=== PATIENT | male | born 1995 | race Caucasian/White ===

== ENCOUNTER 2024-08-09 09:15 | Outpatient (OUT) | payer MEDICAID, SELFPAY | END 2024-08-09 09:16 | disposition home or self-care (01) | LOC: PST 09:15 | PROVIDERS: Visit Provider Urology | DX: Z01.818 Encounter for other preprocedural examination (principal); N31.8 Other neuromuscular dysfunction of bladder ==

== ENCOUNTER 2024-08-15 13:01 | Day surgery (SDC) | payer MEDICAID, SELFPAY ==
--- OUTSIDE RECORDS SUMMARY | 2016-02-13 05:45 | XMS_ITS | Continuity of Care Document ---
Author Organization [facility] Address [address] [place] [address] Phone Care Team Providers Care Staff Educator Name Role Phone Armando Polo Unavailable Unavailable Procedures Procedure Date IMMUNIZATION ADMIN Meningococcal Conjugate Vaccine 016 OFFICE/OUTPATIENT VISIT, EST Meningococcal Conjugate Vaccine 016 OFFICE/OUTPATIENT VISIT, EST OFFICE/OUTPATIENT VISIT, EST MMR VACCINE, SC POLIOVIRUS, IPV, SC/IM CHICKEN POX VACCINE, SC TDAP VACCINE >7 IM Advance Directives Directive Yes / No Effective Date File Name No Information Encounters Encounter Description Practice Location Reason(s) For Visit Diagnoses Date Provider Providers Copied on Encounter OFFICE/OUTPATI ENT VISIT, [facility], [address] [place] [address], [id number], [place] tel:[phone] [facility] No Information Brittani Marx. [address], [place], [id number], [place]. tel:[phone] OFFICE/OUTPATI ENT VISIT, [facility], [address], [place], [id number], [place] tel:[phone] [facility] Influenza Vaccine Brittani Marx. [address], [place], [id number], [place]. tel:[phone] OFFICE/OUTPATI ENT VISIT, [facility], [address], [place], [id number], [place] tel:[phone] [facility] No Information Visci DO Armando. [address], [place], [id number], [place]. tel:[phone] Family History Family Member Type Diagnosis Age At Onset No Information Immunizations Vaccine Date Status Comments meningococcal MCV4P administered Source: New Immunization Record Flu (split) (3 yrs or older) administered Note: Flu vis given. ; Source: New Immunization Record Tdap administered Source: New Imm unization Record Varicella administered Source: New Imm unization Record MMR administered Source: New Imm unization Record polio, inactive administered Source: New Immunization Record Payers Payer name Insurance type Covered libertarian ID Authoriza tion(s) Medicaid Primary - [facility] [place] [id number] Medicaid Primary - [facility] [place] [id number] Social History Type Description Quantity Date Captured Comments Sex Male Smoking Status No Information Chief Complaint And Reason For Visit No Information Reason For Referral Reason For Referral No Information Plan Of Treatment Date Type Action Status Goal Tdap due Goal HPV (1st). Due on 6 due Goal Depression screening. Due on due Goal TD Vaccine. Due on 10 due History Of Present Illness Encounter Date Complaint History Of Prese nt Illness No Information Functional Status Date Functional Assessmen t No Information Instructions Date Instruction Additional Infor mation No Information Assessments Type Assessment Date No Information Patient Care Teams Name Effective Dates (start - stop) Status Members No Information
--- OUTSIDE RECORDS SUMMARY | 2024-08-15 13:05 | XMS_ITS | Encounter Summary ---
Author Organization [facility] Address [address] [place] [address] Phone Care Team Providers Care Geothermal Hvac Technician Name Role Phone Laurie Diaz BINDERY PRODUCTION MANAGER-HARBOR PILOT Primary Care Prov ider Zainab Jones BINDERY PRODUCTION MANAGER-HARBOR PILOT Unavailable Encounter Details Date Type Department Care Team (Late st Contact Info) Description 02/29/2024 Patient Risk Score ACO Care Management [address] [place] [address] Social History Tobacco Use Types Packs/Day Years Used Date Smoking Tobacco: Never Smokeless Tobacco: Never Alcohol Use Standard Drinks/Week Comments Never 0 (1 standard drink = 0.6 oz pur e alcohol) Sex and Gender Information Value Date Recorded Sex Assigned at Not on file Legal Sex Male 12:02 AM EST Gender Identity Not on file Sexual Orientation Not on file documented as of this encounter Plan of Treatment Upcoming Encounters Date Type Department Care Team (Late st Contact Info) Description 09/27/2024 3:30 PM EDT Telemedicine [facility] [address] [place] [address] [place] [address] Department of Medicine-Endocrinol [place], [place] [phone] documented as of this encounter Visit Diagnoses Not on filedocumented in this encounter Care Teams Geothermal Hvac Technician Relationship Specialty Start Date End Date Laurie Diaz SUNNI-HARBOR PILOT [address] [facility] [place] [address] PCP - General 09/26/15 Zainab Jones APRN-HARBOR PILOT [address] [facility] [address] [place] [address] PCP - SENIOR CONSTRUCTION PROJECT MANAGER Medicaid PCP 12/27/23 documented as of this encounter
--- OUTSIDE RECORDS SUMMARY | 2024-08-15 13:05 | XMS_ITS | Encounter Summary ---
Author Organization [facility] Address [address] [place] [address] Care Team Providers Care Silk Snapper Name Role Phone Leonid Escalante MD Primary Care Provider Reason for Visit * Reason Comments Medication Refill Encounter Details Date Type Department Care Team (Late st Contact Info) Description 04/25/2011 Refill Division of Pediatric Endocrinology [address] [place] [phone] Carlos Wheeler MD [facility] [place] [address] Medication Refill Social History Tobacco Use Types Packs/Day Years Used Date Smoking Tobacco: Never Assessed Sex and Gender Information Value Date Recorded Sex Assigned at Not on file Legal Sex Male 7:11 PM EST Gender Identity Not on file Sexual Orientation Not on file documented as of this encounter Plan of Treatment Not on file documented as of this encounter Visit Diagnoses Diagnosis Type 1 diabetes mellitus (HCC) Type I (juvenile type) diabetes mellitus without mention of complication, not stated as uncontrolled documented in this encounter Care Teams Silk Snapper Relationship Specialty Start Date End Date Leonid Escalante MD PCP - General 03/31/11 documented as of this encounter
--- OUTSIDE RECORDS SUMMARY | 2024-08-15 13:05 | XMS_ITS | Encounter Summary ---
Author Organization [facility] Address [address] [place] [address] Care Team Providers Care Press And Blow Machine Tender Name Role Phone Leonid Escalante MD Primary Care Provider [phone] Reason for Visit * Reason Comments Other Encounter Details Date Type Department Care Team (Late st Contact Info) Description 07/03/2012 Refill Division of Pediatric Endocrinology [address] [facility] [address] [place] [address] Christianne Breen, SUPERVISOR [facility] [address] [facility] [address] [place] [address] Other Social History Tobacco Use Types Packs/Day Years Used Date Smoking Tobacco: Never Smokeless Tobacco: Never Alcohol Use Standard Drinks/Week Comments No 0 (1 standard drink = 0.6 oz pur e alcohol) Sex and Gender Information Value Date Recorded Sex Assigned at Not on file Legal Sex Male 7:11 PM EST Gender Identity Not on file Sexual Orientation Not on file documented as of this encounter Plan of Treatment Not on file documented as of this encounter Visit Diagnoses Diagnosis Type I (juvenile type) diabetes mellitus without mention of complication, not stated as uncontrolled- Primary documented in this encounter Care Teams Press And Blow Machine Tender Relationship Specialty Start Date End Date Loenid Escalante MD PCP - General 03/31/11 documented as of this encounter
--- OUTSIDE RECORDS SUMMARY | 2024-08-15 13:05 | XMS_ITS | Encounter Summary ---
Author Organization [facility] Address [address] [place] [address] Phone Care Team Providers Care Brick Kiln Worker Name Role Phone Laurie Diaz FILL TECHNICIAN-AIR TRAFFIC CONTROL SPECIALIST CENTER Primary Care Prov ider Zainab Jones FILL TECHNICIAN-AIR TRAFFIC CONTROL SPECIALIST CENTER Unavailable Encounter Details Date Type Department Care Team (Late st Contact Info) Description 05/01/2024 Patient Risk Score ACO Care Management [address] [place] [address] Social History Tobacco Use Types [...] Info) Description 09/27/2024 3:30 PM EDT Telemedicine [facility] [address] [place] [address] [place] [address] Department of Medicine-Endocrinol [place], [place] [phone] documented as of this encounter Visit Diagnoses Not on filedocumented in this encounter Care Teams Brick Kiln Worker Relationship Specialty Start Date End Date Laurie Diaz SUNNI-[facility] TRAFFIC CONTROL [facility]IST [facility] [address] [facility] [place] [address] PCP - General 09/26/15 Zainab Jones APRN-AIR TRAFFIC CONTROL SPECIALIST CENTER [address] [facility] [address] [place] [address] PCP - REFINERY OPERATOR VAPOR RECOVERY UNIT Medicaid PCP 12/27/23 documented as of this encounter
--- OUTSIDE RECORDS SUMMARY | 2024-08-15 13:05 | XMS_ITS | Encounter Summary ---
Author Organization [facility] Address [address] [place] [address] Phone Care Team Providers Care Cylinder Inspector And Tester Name Role Phone Laurie Diaz Primary Care Prov ider Zainab Jones Unavailable Encounter Details Date Type Department Care Team (Late st Contact Info) Description 08/18/2018 Orders Only [facility] [address] [place] [address] Conversion, Onbase Social History Tobacco Use Types Packs/Day Years [...] Info) Description 09/27/2024 3:30 PM EDT Telemedicine [facility] [address] [place] [address] [place] [address] Department of [place] [address] Scheduled Orders Name Type Priority Associated Diagnoses Orde r Schedule OUTSIDE LAB SCAN Lab Ordered: 08/18/2018 documented as of this encounter Visit Diagnoses Not on filedocumented in this encounter Care Teams Cylinder Inspector And Tester Relationship Specialty Start Date End Date Laurie Diaz APRN-CNP [address] [facility] [place] [address] PCP - General 09/26/15 Zainab Jones, HASH SLINGER-MAT MACHINE TENDER [address] [facility] [address] [place] [address] PCP - EATING DISORDER SPECIALIST Medicaid PCP 12/27/23 documented as of this encounter
--- OUTSIDE RECORDS SUMMARY | 2024-08-15 13:05 | XMS_ITS | Encounter Summary ---
Author Organization [facility] Address [address] [place] [address] Phone Care Team Providers Care Building Construction Supervisor Name Role Phone Laurie Diaz TENANT COORDINATOR-BOX PERSON Primary Care Prov ider Zainab Jones TENANT COORDINATOR-BOX PERSON Unavailable Encounter Details Date Type Department Care Team (Late st Contact Info) Description 03/31/2024 Patient Risk Score ACO Care Management [address] [place] [address] Social History Tobacco Use Types [...] Info) Description 09/27/2024 3:30 PM EDT Telemedicine [facility] [address] [place] [address] [place] [address] Department of Medicine-Endocrinol [place], [place] [phone] documented as of this encounter Visit Diagnoses Not on filedocumented in this encounter Care Teams Building Construction Supervisor Relationship Specialty Start Date End Date Laurie Diaz SUNNI-BOX PERSON [address] [facility] [place] [address] PCP - General 09/26/15 Zainab Jones APRN-BOX PERSON [address] [facility] 100 [place] [address] PCP - NUCLEAR POWERPLANT MECHANIC Medicaid PCP 12/27/23 documented as of this encounter
--- OUTSIDE RECORDS SUMMARY | 2024-08-15 13:05 | XMS_ITS | Encounter Summary ---
Author Organization [facility] Address [address] [facility] [address] Phone Care Team Providers Care Occupational Analyst Name Role Phone Laurie Diaz ROBOTIC WELDING OPERATOR-SEAMLESS TUBE MILL OPERATOR Primary Care Prov ider Zainab Jones ROBOTIC WELDING OPERATOR-SEAMLESS TUBE MILL OPERATOR Unavailable [phone] Encounter Details Date Type Department Care Team (Late st Contact Info) Description 05/29/2024 Patient Risk Score ACO Care Management [address] [place] [address] Social History Tobacco Use Types Packs/Day Years Used Date Smoking Tobacco: Never Smokeless Tobacco: Never Alcohol Use Standard Drinks/Week Comments Never 0 (1 standard drink = 0.6 oz pur e alcohol) PHQ-2 Answer Date Recorded Patient Health Questionnaire-2 Score 0 05/18/2024 Sex and Gender Information Value Date Recorded Sex Assigned at Not on file Legal Sex Male 12:02 AM EST Gender Identity Not on file Sexual Orientation Not on file COVID-19 Exposure Response Date Recorded In the last 10 days, have yo u been in contact with someone who was confirmed or suspected to have Coronavirus/COVID-19? No / Unsure 05/18/2024 11:08 AM EST documented as of this encounter Plan of Treatment Upcoming Encounters Date Type Department Care Team (Late Contact Info) Description 09/27/2024 3:30 PM EDT Telemedicine [facility] [address] [place] [phone] [place] [address] Department of Medicine-[place] [address] documented as of this encounter Visit Diagnoses Not on filedocumented in this encounter Additional Health Concerns Assessment Noted Time A fall risk assessment has been complete d for the patient 05/18/2024 11:32 AM EST documented as of this encounter Care Teams Occupational Analyst Relationship Specialty Start Date End Date Laurie Diaz APRN-CNP [address] [facility] [place] [address] PCP - General 09/26/15 Zainab Jones APRN-CNP [address] [facility] 100 [place] [address] PCP - [facility] Medicaid PCP 12/27/23 documented as of this encounter
--- OUTSIDE RECORDS SUMMARY | 2024-08-15 13:05 | XMS_ITS | Encounter Summary ---
Author Organization [facility] Address [address] [place] [address] Care Team Providers Care Tamale Machine Feeder Name Role Phone Leonid Escalante MD Primary Care Provider [phone] Reason for Visit * Reason Comments Medication Refill Encounter Details Date Type Department Care Team (Late st Contact Info) Description 05/30/2011 Refill Division of Pediatric Endocrinology [address] [place] [phone] Carlos Wheeler MD [facility]9 [place] [address] Medication Refill Social History Tobacco Use Types [...] on filedocumented in this encounter Care Teams Tamale Machine Feeder Relationship Specialty Start Date End Date Leonid Escalante MD PCP - General 03/31/11 documented as of this encounter
--- OUTSIDE RECORDS SUMMARY | 2024-08-15 13:05 | XMS_ITS | Encounter Summary ---
Author Organization [facility] Address [address] [place] [address] Care Team Providers Care Agent Spa Desk Name Role Phone Leonid Escalante MD Primary Care Provider [phone] Reason for Visit * Reason Comments Other Encounter Details Date Type Department Care Team (Late st Contact Info) Description 06/25/2012 Refill Division of Pediatric Endocrinology [address] [facility] [address] [place] [address] Christianne Breen, VIBRATOR OPERATOR - [facility] [address] [facility] [address] [place] [address] Other Social History Tobacco Use Types Packs/Day [...] Primary documented in this encounter Care Teams Agent Spa Desk Relationship Specialty Start Date End Date Leonid Escalante MD PCP - General 03/31/11 documented as of this encounter
--- NOTE | 2024-08-15 13:06 | ECG_ITS ---
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 Measurements Intervals [place] Rate: 90 P: 70 [place]: 113 QRS: 95 QRSD: 97 T: 71 QT: 354 QTc: 435 Interpretive Statements SINUS RHYTHM WITH SHORT [place] INTERVAL BORDERLINE RIGHT AXIS DEVIATION [QRS AXIS > 90] INCOMPLETE RIGHT BUNDLE BRANCH BLOCK [90+ ms QRS DURATION, TERMINAL R IN V1/V2, 40+ ms S IN I/aVL/V4/V5/V6] ST ELEVATION, PROBABLY EARLY REPOLARIZATION [ST ELEVATION WITH NORMALLY INFLECTED T WAVE] Borderline ECG No previous ECG available for comparison Electronically Signed On 08-15-2024 21:45:54 EDT by KAMAR COFFEY M.D.
--- OUTSIDE RECORDS SUMMARY | 2024-08-15 13:06 | XMS_ITS | Encounter Summary ---
Author Organization [facility] Address [address] [facility] [place] [address] Care Team Providers Care Extrusion Line Operator Name Role Phone Unallocated, Noms Provider Primary Care Provi marion Encounter Details Date Type Department Care Team (Late st Contact Info) Description 08/08/2024 Abstract [facility] [place] [id number] [place] [phone] Fortino Hess DO [address] [facility] [address] [place] [address] Social History Tobacco Use Types Packs/Day Years Used Date Smoking Tobacco: Never Assessed Sex and Gender Information Value Date Recorded Sex Assigned at Not on file Legal Sex Male 7:21 PM EDT Gender Identity Not on file Sexual Orientation Not on file documented as of this encounter Plan of Treatment Upcoming Encounters Date Type Department Care Team (Late st Contact Info) Description 08/16/2024 3:20 PM EDT Office Visit [facility] [address] [place] [address] Fortino Hess DO [address] [place] [address] documented as of this encounter Visit Diagnoses Not on filedocumented in this encounter Care Teams Extrusion Line Operator Relationship Specialty Start Date End Date Unallocated, Noms Provider, [address] [place] [address] PCP - General Family Medicine 05/08/23 documented as of this encounter
--- OUTSIDE RECORDS SUMMARY | 2024-08-15 13:06 | XMS_ITS | Encounter Summary ---
Author Organization [facility] Address [address] [facility] [place] [address] Phone Care Team Providers Care Group Leader Name Role Phone Laurie Diaze BARREL REAMER-VP MARKETING Primary Care Prov ider Zainab Jones BARREL REAMER-VP MARKETING Unavailable Encounter Details Date Type Department Care Team (Late st Contact Info) Description 08/03/2024 Telephone [facility] [address] [place] [phone] Dana Griffiths RD, LD Social History Tobacco Use Types Packs/Day Years [...] on file documented as of this encounter Miscellaneous Notes * Telephone Encounter - Dana Griffiths RD, LD - 08/03/2024 1:33 PM EDT [facility] pre-surgical testing department is requesting endocrinology notes and recent labsin advance of Mr. Dior's cystoscopy with possible urethral dilation. FAX: [phone] ATTN to Salena documented in this encounter Plan of Treatment Upcoming Encounters Date Type Department Care Team (Late st Contact Info) Description 09/27/2024 3:30 PM EDT Telemedicine [facility] [address] [place] [address] [place] [address] [facility] Department [place] [address] documented as of this encounter Visit Diagnoses Not on filedocumented in this encounter Additional Health Concerns Assessment Noted Time A fall risk assessment has been complete d for the patient 05/18/2024 11:32 AM EST documented as of this encounter Care Teams Group Leader Relationship Specialty Start Date End Date Laurie Diaz APRN-LILY [address] [facility] [place] [address] PCP - General 09/26/15 Zainab Jones, BARREL REAMER-VP MARKETING [address] [facility] [address] [place] [address] PCP - [facility] Medicaid PCP 12/27/23 documented as of this encounter
--- OUTSIDE RECORDS SUMMARY | 2024-08-15 13:06 | XMS_ITS | Encounter Summary ---
Author Organization [facility] Address [address] [place] [address] Phone Care Team Providers Care Hospitality Job Titles Name Role Phone Laurie Diaz Primary Care Prov ider Zainab Jones Unavailable [phone] Encounter Details Date Type Department Care Team (Late st Contact Info) Description 10/13/2020 Orders Only [facility] [address] [place] [address] Conversion, Onbase Social History Tobacco Use Types [...] Info) Description 09/27/2024 3:30 PM EDT Telemedicine [facility] [address] [place] [address] [place] [address] Department of Medicine-Endocrinol [place], [place] [phone] Scheduled Orders Name Type Priority Associated Diagnoses Orde r Schedule OUTSIDE LAB SCAN Lab Ordered: 10/13/2020 documented as of this encounter Visit Diagnoses Not on filedocumented in this encounter Care Teams Hospitality Job Titles Relationship Specialty Start Date End Date Laurie Diaz APRN-CNP [address] [facility] [place] [address] PCP - General 09/26/15 Zainab Jones, SUNNI-GRAPHIC DESIGNER [address] [facility] [address] [place] [address] PCP - COBOL ENGINEER Medicaid PCP 12/27/23 documented as of this encounter
--- OUTSIDE RECORDS SUMMARY | 2024-08-15 13:06 | XMS_ITS | Encounter Summary ---
Author Organization [facility] Address [address] [place] [address] Phone Care Team Providers Care Thoracic Surgeon Name Role Phone Laurie Diaz Primary Care Prov ider Zainab Jones Unavailable [phone] Encounter Details Date Type Department Care Team (Late st Contact Info) Description 05/25/2017 Orders Only [facility] [address] [place] [address] Conversion, Onbase Social History Tobacco Use Types [...] Info) Description 09/27/2024 3:30 PM EDT Telemedicine [facility] [address] [place] [address] [place] [address] Department [place] [address] Scheduled Orders Name Type Priority Associated Diagnoses Orde r Schedule OUTSIDE LAB SCAN Lab Ordered: 05/25/2017 documented as of this encounter Visit Diagnoses Not on filedocumented in this encounter Care Teams Thoracic Surgeon Relationship Specialty Start Date End Date Laurie Diaz APRN-CNP [address] [facility] [place] [address] PCP - General 09/26/15 Zainab Jones, COAT FELLER-CREAM SEPARATOR OPERATOR [address] [facility] 100 [place] [address] PCP - BAR ATTENDANT Medicaid PCP 12/27/23 documented as of this encounter
--- OUTSIDE RECORDS SUMMARY | 2024-08-15 13:06 | XMS_ITS | Encounter Summary ---
Author Organization [facility] Address [address] [place] [address] Phone Care Team Providers Care Low Voltage Electrician Name Role Phone Laurie Diaz BUNK HOUSE WORKER-TITLE ATTORNEY Primary Care Prov ider Zainab Jones BUNK HOUSE WORKER-TITLE ATTORNEY Unavailable Encounter Details Date Type Department Care Team (Late st Contact Info) Description 07/29/2024 Patient Risk Score [facility] Care Management [address] [place] [address] Social History Tobacco Use Types [...] Info) Description 09/27/2024 3:30 PM EDT Telemedicine [facility] [address] [place] [address] [place] [address] Department [place] [address] documented as of this encounter Visit Diagnoses Not on filedocumented in this encounter Additional Health Concerns Assessment Noted Time A fall risk assessment has been complete d for the patient 05/18/2024 11:32 AM EST documented as of this encounter Care Teams Low Voltage Electrician Relationship Specialty Start Date End Date Laurie Diaz APRN-CNP [address] [facility] [place] [address] PCP - General 09/26/15 Zainab Jones, SUNNI-LILY [address] [facility] [address] [place] [address] PCP - [facility] Medicaid PCP 12/27/23 documented as of this encounter
--- OUTSIDE RECORDS SUMMARY | 2024-08-15 13:06 | XMS_ITS | Encounter Summary ---
Author Organization Vaughn Ricardo Mayer [facility] Address [address] [place] [address] Care Team Providers Care Web Marketing Manager Name Role Phone Leonid Escalante MD Primary Care Provider [phone] Reason for Visit * Reason Comments Other Encounter Details Date Type Department Care Team (Late Contact Info) Description 12/24/2013 Refill Division of Pediatric Endocrinology [address] [place] [phone] Carlos Wheeler MD [address] [place] [address] Other Social History Tobacco Use Types Packs/Day [...] on filedocumented in this encounter Care Teams Web Marketing Manager Relationship Specialty Start Date End Date Leonid Escalante MD PCP - General 03/31/11 documented as of this encounter
--- OUTSIDE RECORDS SUMMARY | 2024-08-15 13:06 | XMS_ITS | Encounter Summary ---
Author Organization [facility]n [facility] Address [address] [place] [address] Care Team Providers Care Reclaimer Name Role Phone Leonid Escalante MD Primary Care Provider [phone] Reason for Visit * Reason Comments Other Encounter Details Date Type Department Care Team (Late st Contact Info) Description 12/10/2012 Refill Division of Pediatric Endocrinology [address] [facility] [address] [place] [phone] Christianne Breen, LOGISTICS COORDINATOR - SOLUTION ARCHITECT [address] [facility] [address] [place] [address] Other Social History Tobacco Use Types Packs/Day [...] Primary documented in this encounter Care Teams Reclaimer Relationship Specialty Start Date End Date Leonid Escalante MD PCP - General 03/31/11 documented as of this encounter
--- OUTSIDE RECORDS SUMMARY | 2024-08-15 13:06 | XMS_ITS | Encounter Summary ---
Author Organization Vaughn Ricardo Mayer [facility] Address [address] [place] [address] Care Team Providers Care Chief I Dispatcher Name Role Phone Leonid Escalante MD Primary Care Provider [phone] Reason for Visit * Reason Comments Other Encounter Details Date Type Department Care Team (Late st Contact Info) Description 08/02/2013 Refill Division of Pediatric Endocrinology [address] [facility] [address] [place] [address] Christianne Breen, DIGITAL FORENSIC ANALYST - RABBIT BREEDER [address] [facility] [address] [place] [address] Other Social History Tobacco Use Types Packs/Day [...] on filedocumented in this encounter Care Teams Chief I Dispatcher Relationship Specialty Start Date End Date Leonid Escalante MD PCP - General 03/31/11 documented as of this encounter
--- OUTSIDE RECORDS SUMMARY | 2024-08-15 13:06 | XMS_ITS | Encounter Summary ---
Author Organization Vaughn Ricardo Mayer [facility] Address [address] [place] [address] Care Team Providers Care Curing Oven Tender Name Role Phone Leonid Escalante MD Primary Care Provider [phone] Reason for Visit * Reason Comments Other Encounter Details Date Type Department Care Team (Late Contact Info) Description 07/25/2013 Refill Division of Pediatric Endocrinology [address] [place] [phone] Carlos Wheeler MD [address] [place] [address] Other Social History Tobacco Use Types Packs/Day [...] on filedocumented in this encounter Care Teams Curing Oven Tender Relationship Specialty Start Date End Date Leonid Escalante MD PCP - General 03/31/11 documented as of this encounter
--- OUTSIDE RECORDS SUMMARY | 2024-08-15 13:06 | XMS_ITS | Encounter Summary ---
Author Organization [facility] Address [address] [place] [address] Phone Care Team Providers Care Toll Collector Supervisor Name Role Phone Laurie Diaz SENIOR MEDIA PLANNER-MALE INFERTILITY SPECIALIST Primary Care Prov ider Zainab Jones SENIOR MEDIA PLANNER-MALE INFERTILITY SPECIALIST Unavailable [phone] Encounter Details Date Type Department Care Team (Late Contact Info) Description 05/21/2024 Community Care Management [employer] [address] [place] [address] [facility] Tai PhysicianMD [address] [place] [address] Social History Tobacco Use Types Packs/Day Years [...] Telemedicine [facility] [address] [place] [address] [place] [address] [address] Department [place] [address] documented as of this encounter Visit Diagnoses Not on filedocumented in this encounter Additional Health Concerns Assessment Noted Time A fall risk assessment has been complete d for the patient 05/18/2024 11:32 AM EST documented as of this encounter Care Teams Toll Collector Supervisor Relationship Specialty Start Date End Date Laurie Diaz APRN-MALE INFERTILITY SPECIALIST [address] [facility] [place] [address] PCP - General 09/26/15 Zainab Jones, SUNNI-MALE INFERTILITY SPECIALIST [address] [place] [address] PCP - [facility] Medicaid PCP 12/27/23 documented as of this encounter
--- OUTSIDE RECORDS SUMMARY | 2024-08-15 13:06 | XMS_ITS | Encounter Summary ---
Author Organization Vaguhn Mayer [facility] Address [address] [place] [address] Care Team Providers Care Drug Counselor Name Role Phone Leonid Escalante MD Primary Care Provider [phone] Reason for Visit * Reason Comments Other Encounter Details Date Type Department Care Team (Late Contact Info) Description 05/02/2013 Refill Division of Pediatric Endocrinology [address] [place] [phone] Carlos Wheeler MD [address] [place] [address] Other Social History Tobacco Use Types Packs/Day [...] Primary documented in this encounter Care Teams Drug Counselor Relationship Specialty Start Date End Date Leonid Escalante MD PCP - General 03/31/11 documented as of this encounter
--- OUTSIDE RECORDS SUMMARY | 2024-08-15 13:06 | XMS_ITS | Encounter Summary ---
Author Organization [facility] Address [address] [place] [address] Phone Care Team Providers Care Sweet Goods Machine Operator Name Role Phone Laurie Diaz Primary Care Prov ider Zainab Jones Unavailable Encounter Details Date Type Department Care Team (Late st Contact Info) Description 09/06/2022 Orders Only [facility] [address] [place] [address] Conversion, Onbase Social History Tobacco Use Types [...] Info) Description 09/27/2024 3:30 PM EDT Telemedicine [facility] [address] [place] [address] [place] [address] Department of Medicine-Endocrinol [place], [place] [phone] Scheduled Orders Name Type Priority Associated Diagnoses Orde r Schedule OUTSIDE LAB SCAN Lab Ordered: 09/06/2022 documented as of this encounter Visit Diagnoses Not on filedocumented in this encounter Care Teams Sweet Goods Machine Operator Relationship Specialty Start Date End Date Laurie Diaz APRN-CNP [address] [facility] [place] [address] PCP - General 09/26/15 Zainab Jones, SUNNI-FOREIGN LANGUAGES PROFESSOR [address] [facility] [address] [place] [address] PCP - COMPOSITION BOARD PRESS OPERATOR Medicaid PCP 12/27/23 documented as of this encounter
--- OUTSIDE RECORDS SUMMARY | 2024-08-15 13:06 | XMS_ITS | Encounter Summary ---
Author Organization Vaughn Ricardo Mayer [facility] Address [address] [place] [address] Care Team Providers Care Nut Sheller Name Role Phone Leonid Escalante MD Primary Care Provider [phone] Reason for Visit * Reason Comments Other Encounter Details Date Type Department Care Team (Late Contact Info) Description 09/29/2013 Refill Division of Pediatric Endocrinology [address] [place] [phone] Carlos Wheeler MD [address] [place] [address] Other Social History Tobacco Use Types Packs/Day [...] on filedocumented in this encounter Care Teams Nut Sheller Relationship Specialty Start Date End Date Leonid Escalante MD PCP - General 03/31/11 documented as of this encounter
--- OUTSIDE RECORDS SUMMARY | 2024-08-15 13:06 | XMS_ITS | Encounter Summary ---
Author Organization Vaughn Ricardo Mayer [facility] Address [address] [place] [address] Care Team Providers Care Regulatory Attorney Name Role Phone Leonid Escalante MD Primary Care Provider [phone] Reason for Visit * Reason Comments Other Encounter Details Date Type Department Care Team (Late st Contact Info) Description 06/13/2013 Refill Division of Pediatric Endocrinology [address] [facility] [address] [place] [address] Christianne Breen, BUSINESS OFFICE TECHNICIAN - DIETARY DIRECTOR [address] [facility] [address] [place] [address] Other Social History Tobacco Use Types Packs/Day [...] on filedocumented in this encounter Care Teams Regulatory Attorney Relationship Specialty Start Date End Date Leonid Escalante MD PCP - General 03/31/11 documented as of this encounter
--- OUTSIDE RECORDS SUMMARY | 2024-08-15 13:06 | XMS_ITS | Encounter Summary ---
Author Organization [facility] Address [address] [facility] [place] [address] Phone Care Team Providers Care Senior Cisco Network Engineer Name Role Phone Laurie Diaz UNDERWRITER-PROPULSION ENGINEER Primary Care Prov ider Hailey Jonesian Paul UNDERWRITER-PROPULSION ENGINEER Unavailable Reason for Visit * Reason Onset Date Comments Pharmacy Clarification Of Prescription Encounter Details Date Type Department Care Team (Late st Contact Info) Description 08/02/2024 Telephone [facility] [address] [place] [address], [place] Pharmacy Clarification Of Prescription Social History Tobacco Use Types Packs/Day Years [...] Encounter - Dana Griffiths RD, LD - 08/02/2024 12:12 PM EDT Pharmacist from [place] called 08/02. Humalog is no longer on 's insurance formulary. The preferred product is insulin aspart (Novolog). documented in this encounter Plan of Treatment Upcoming Encounters Date Type Department Care Team (Late st Contact Info) Description 09/27/2024 3:30 PM EDT Telemedicine [facility] [address] [place] [address] [place] [address] [address] [facility] Department [place] [address] documented as of this encounter Visit Diagnoses Diagnosis Type 1 diabetes mellitus with hyperglycemia, with long-term current use of insulin- Primary documented in this encounter Additional Health Concerns Assessment Noted Time A fall risk assessment has been complete d for the patient 05/18/2024 11:32 AM EST documented as of this encounter Care Teams Senior Cisco Network Engineer Relationship Specialty Start Date End Date Laurie Diaz APRN-PROPULSION ENGINEER [address] [facility] [place] [address] PCP - General 09/26/15 Zainab Jones, SUNNI-PROPULSION ENGINEER [address] [address] PCP - [facility] Medicaid PCP 12/27/23 documented as of this encounter
--- OUTSIDE RECORDS SUMMARY | 2024-08-15 13:06 | XMS_ITS | Encounter Summary ---
Author Organization [facility] Address [address] [place] [address] Phone Care Team Providers Care Mixing Machine Tender Cork Rod Name Role Phone Laurie Diaz TELEPHONY ENGINEER-COMMUNICATIONS SPECIALIST Primary Care Prov ider Zainab Jones TELEPHONY ENGINEER-COMMUNICATIONS SPECIALIST Unavailable Encounter Details Date Type Department Care Team (Late st Contact Info) Description 06/29/2024 Patient Risk Score [facility] Care Management [address] [place] [address] Social History Tobacco Use Types [...] 09/27/2024 3:30 PM EDT Telemedicine [facility] [address] [place] [address] [place] [address] [address] Department [place] [address] documented as of this encounter Visit Diagnoses Not on filedocumented in this encounter Additional Health Concerns Assessment Noted Time A fall risk assessment has been complete d for the patient 05/18/2024 11:32 AM EST documented as of this encounter Care Teams Mixing Machine Tender Cork Rod Relationship Specialty Start Date End Date Laurie Diaz APRN-CNP [address] [facility] [place] [address] PCP - General 09/26/15 Zaniab Jones, SUNNI-LILY [address] [facility] [address] [place] [address] PCP - [facility] Medicaid PCP 12/27/23 documented as of this encounter
--- OUTSIDE RECORDS SUMMARY | 2024-08-15 13:06 | XMS_ITS | Clinical Summary ---
Author Organization [facility] Address [address] [place] [place] [address] Care Team Providers Care Quilt Maker Name Role Phone Unallocated, Noms Provider Primary Care Provi marion Allergies No known active allergies Medications Continuous Blood Gluc Sensor (Dexcom G7 Sensor) misc CHANGE EVERY 10 DAYS 04/13/19 24 Active dexmethylpheni date XR (Focalin XR) 40 MG 24 hr capsule Take 40 mg by mouth in the morning. Do not start before May 18, 2023. 05/18/19 24 Active sertraline (Zoloft) 100 MG tablet Take 150 mg by mouth in the morning. Active zolpidem (Ambien) 10 MG tablet Take 10 mg by mouth at bedtime 03/16/20 23 Active traZODone (Desyrel) 50 MG tablet Take 50 mg by mouth at bedtime 01/18/20 23 Active levothyroxine (Synthroid, Levoxyl) 175 MCG tablet 04/20/19 24 Active insulin lispro (HumaLOG) 100 UNIT/ML injection INJECT SUBCUTANEOUSLY UP TO 55 UNITS DAILY as directed Active famotidine (Pepcid) 40 MG tablet 01/27/20 23 Active Gvoke HypoPen 2-Pack 1 MG/0.2ML injection as directed by prescriber FOR SEVERE HYPOGLYCEMIA 08/12/19 23 Active phenazopyridin e (Pyridium) 100 MG tabletIndicati ons:Urinary urgency Take 1 tablet (100 mg) by mouth in the morning and 1 tablet (100 mg) at noon and 1 tablet (100 mg) in the evening. Take with meals. Do all this for 2 days. 6 tablet 07/26/19 25 025 cephalexin (Keflex) 500 MG capsuleIndicat ions:Urinary urgency Take 1 capsule (500 mg) by mouth in the morning and 1 capsule (500 mg) before bedtime. Do all this for 7 days. 14 capsule 07/26/19 25 025 Active Problems No known active problems Encounters Date Type Department Care Team Description 08/08/2024 Abstract [facility] [address] [place] [address] Fortino Hess, 08/06/2024 Abstract [facility] [address] [place] [phone] Unallocated, Autumn Barclay MD 07/27/2024 Telephone [facility] [address] [place] [phone] Gianna Hernandez MA 07/25/2024 6:25 PM EDT Office Visit [facility] [address] [place] [address] Belen Harden, REGIONAL BUSINESS MANAGER Urinary urgency; Bladder wall thickening 07/25/2024 Travel from Last 3 Months Social History Tobacco Use Types Packs/Day Years Used Date Smoking Tobacco: Never Assessed Sex and Gender Information Value Date Recorded Sex Assigned at Not on file Legal Sex Male 7:21 PM EDT Gender Identity Not on file Sexual Orientation Not on file Last Filed Vital Signs Vital Sign Reading Time Taken Comments Blood Pressure 122/82 07/25/2024 6:38 PM EDT Pulse 97 07/25/2024 6:38 PM EDT Temperature 36.5 C (97.7 F) 07/25/2024 6:38 PM EDT Respiratory Rate - - Oxygen Saturation 99% 07/25/2024 6:38 PM EDT Inhaled Oxygen Concentration - - Weight 54.9 kg (121 lb) 07/25/2024 6:38 PM EDT Height - - Body Mass Index - - Plan of Treatment Upcoming Encounters Date Type Department Care Team (Late st Contact Info) Description 08/16/2024 3:20 PM EDT Office Visit [facility] [address] [place] [phone] Fortino Hess, DO [address] [place] [address] Health Maintenance Due Date Last Done Comments Medicare Annual Wellness (AWV) 1995 Influenza Vaccine (Season Ended) 2024 12/25/2018, 12/02/2016, 01/06/2016, Additional history exists Procedures Procedure Name Priority Date/Time Associated Diagnosis Comments URINARY TRACT INFECTION (HTRX) Routine 07/26/2024 5:41 PM EDT Urinary urgency URINALYSIS ANALYZER TEST Routine 07/26/2024 4:04 PM EDT Urinary urgency from Last 3 Months Results * URINARY TRACT INFECTION (HTRX) (07/26/2024 5:41 PM EDT) ACINETOBACTER BAUMANII 0.000 19.961 - 24.689 ppm 07/27/2024 6:48 AM EDT [facility] ACINETOBACTER BAUMANII Not Detected 19.961 - 24.689 ppm 07/27/2024 6:48 AM EDT [facility] CITROBACTER FREUNDII 0.000 23.000 - 31.881 ppm 07/27/2024 6:48 AM EDT [facility] CITROBACTER FREUNDII Not Detected 23.000 - 31.881 ppm 07/27/2024 6:48 AM EDT [facility] ENTEROBACTER AEROGENES, CLOACAE 0.000 23.000 - 31.535 ppm 07/27/2024 6:48 AM EDT [facility] ENTEROBACTER AEROGENES, CLOACAE Not Detected 23.000 - 31.535 ppm 07/27/2024 6:48 AM EDT [facility] ENTEROCOCCUS FAECALIS, FAECIUM 0.000 26.000 - 31.575 ppm 07/27/2024 6:48 AM EDT [facility] ENTEROCOCCUS FAECALIS, FAECIUM Not Detected 26.000 - 31.575 ppm 07/27/2024 6:48 AM EDT [facility] ESCHERICHIA COLI 0.000 23.000 - 28.500 ppm 07/27/2024 6:48 AM EDT [facility] ESCHERICHIA COLI Not Detected 23.000 - 28.500 ppm 07/27/2024 6:48 AM EDT [facility] KLEBSIELLA PNEUMONIAE, OXYTOCA 0.000 23.000 - 30.500 ppm 07/27/2024 6:48 AM EDT [facility] KLEBSIELLA PNEUMONIAE, OXYTOCA Not Detected 23.000 - 30.500 ppm 07/27/2024 6:48 AM EDT [facility] MORGANELLA MORGANII 0.000 19.961 - 24.689 ppm 07/27/2024 6:48 AM EDT [facility] MORGANELLA MORGANII Not Detected 19.961 - 24.689 ppm 07/27/2024 6:48 AM EDT [facility] PROTEUS MIRABILIS, VULGARIS 0.000 23.000 - 28.500 ppm 07/27/2024 6:48 AM EDT [facility] PROTEUS MIRABILIS, VULGARIS Not Detected 23.000 - 28.500 ppm 07/27/2024 6:48 AM EDT [facility] PSEUDOMONAS AERUGINOSA 0.000 23.000 - 28.500 ppm 07/27/2024 6:48 AM EDT [facility] PSEUDOMONAS AERUGINOSA Not Detected 23.000 - 28.500 ppm 07/27/2024 6:48 AM EDT [facility] STAPHYLOCOCCUS AUREUS 0.000 26.000 - 30.902 ppm 07/27/2024 6:48 AM EDT [facility] STAPHYLOCOCCUS AUREUS Not Detected 26.000 - 30.902 ppm 07/27/2024 6:48 AM EDT [facility] STREPTOCOCCUS AGALACTIAE (GROUP B STREP) 0.000 26.000 - 32.222 ppm 07/27/2024 6:48 AM EDT [facility] STREPTOCOCCUS AGALACTIAE (GROUP B STREP) Not Detected 26.000 - 32.222 ppm 07/27/2024 6:48 AM EDT [facility] EMORY ALBICANS, PARAPSILOSIS, TROPICALIS 0.000 19.961 - 30.770 ppm 07/27/2024 6:48 AM EDT [facility] EMORY ALBICANS, PARAPSILOSIS, TROPICALIS Not Detected 19.961 - 30.770 ppm 07/27/2024 6:48 AM EDT [facility] EMORY GLABRATA 0.000 23.000 - 32.138 ppm 07/27/2024 6:48 AM EDT [facility] EMORY GLABRATA Not Detected 23.000 - 32.138 ppm 07/27/2024 6:48 AM EDT [facility] EMORY KRUSEI 0.000 23.000 - 32.271 ppm 07/27/2024 6:48 AM EDT [facility] EMORY KRUSEI Not Detected 23.000 - 32.271 ppm 07/27/2024 6:48 AM EDT [facility] SERRATIA MARCESCENS 0.000 23.000 - 31.204 ppm 07/27/2024 6:48 AM EDT [facility] SERRATIA MARCESCENS Not Detected 23.000 - 31.204 ppm 07/27/2024 6:48 AM EDT [facility] STREPTOCOCCUS PYOGENES (GROUP A STREP) 0.000 19.961 - 24.689 ppm 07/27/2024 6:48 AM EDT [facility] STREPTOCOCCUS PYOGENES (GROUP A STREP) Not Detected 19.961 - 24.689 ppm 07/27/2024 6:48 AM EDT [facility] STAPHYLOCOCCUS EPIDERMIDIS, HAEMOLYTICUS, LUGDUNENSIS, SAPROPHYTICUS (URINA 0.000 19.961 - 24.689 ppm 07/27/2024 6:48 AM EDT [facility] STAPHYLOCOCCUS EPIDERMIDIS, HAEMOLYTICUS, LUGDUNENSIS, SAPROPHYTICUS (URINA Not Detected 19.961 - 24.689 ppm 07/27/2024 6:48 AM EDT [facility] STAPHYLOCOCCUS EPIDERMIDIS, HAEMOLYTICUS, LUGDUNENSIS, SAPROPHYTICUS (URINA 0.000 19.961 - 24.689 ppm 07/27/2024 6:48 AM EDT [facility] STAPHYLOCOCCUS EPIDERMIDIS, HAEMOLYTICUS, LUGDUNENSIS, SAPROPHYTICUS (URINA Not Detected 19.961 - 24.689 ppm 07/27/2024 6:48 AM EDT [facility] Urine 07/26/2024 5:41 PM EDT 07/27/2024 1:43 AM EDT us Belen Harden REGIONAL BUSINESS MANAGER LAB BLOOD ORDERABLES Final Resul t [facility]ENTERReverb TechnologiesUofL [facility] [address] [place] [address] * URINALYSIS ANALYZER TEST (07/26/2024 4:04 PM EDT) LEUKOCYTES Negative Negative NITRITES Negative Negative UROBILINOGEN 0.2mg/dL 0.2 - 1.0 PROTEIN Negative Negative PH 6.0 5.0 - 6.0 BLOOD Negative Negative SPECIFIC GRAVITY 1.025 1.001 - 1.035 KETONES Negative Negative BILIRUBIN Negative Negative GLUCOSE Negative Negative Urine 07/26/2024 4:04 PM EDT us Belen Harden REGIONAL BUSINESS MANAGER POINT OF CARE TEST ENTER/EDIT OR DERABLES Final Result from Last 3 Months Insurance MEDICAID [place] MEDICARE Care Teams Quilt Maker Relationship Specialty Start Date End Date Unallocated, Noms Provider, [address] [place] [address] PCP - General Family Medicine 05/08/23
--- OUTSIDE RECORDS SUMMARY | 2024-08-15 13:06 | XMS_ITS | Encounter Summary ---
Author Organization Vaughn iRcardo Mayer [facility] Address [address] [place] [address] Care Team Providers Care Volunteer Assistant Name Role Phone Leonid Escalante MD Primary Care Provider [phone] Reason for Visit * Reason Comments Other Encounter Details Date Type Department Care Team (Late st Contact Info) Description 10/04/2013 Refill Division of Pediatric Endocrinology [address] [place] [phone] Carlos Wheeler MD [address] [place] [address] Other Social History Tobacco Use Types Packs/Day [...] on filedocumented in this encounter Care Teams Volunteer Assistant Relationship Specialty Start Date End Date Leonid Escalante MD PCP - General 03/31/11 documented as of this encounter
--- OUTSIDE RECORDS SUMMARY | 2024-08-15 13:06 | XMS_ITS | Clinical Summary ---
Author Organization [facility] Address [address] [place] [address] Care Team Providers Care Mask Design Engineer Name Role Phone Leonid Escalante MD Primary Care Provider [phone] Allergies No known active allergies Medications sertraline (ZOLOFT) 100 MG tablet Take 150 mg by mouth daily. Active insulin lispro (HUMALOG KWIKPEN) 100 UNIT/ML injectionIndicatio ns:Diabetes type 1, controlled ([facility]) As directed for 3-4 injections/day Up to 40 units/day 5 Pen 11 06/24/19 12 Active ondansetron (ZOFRAN ODT) 4 MG disintegrating tabletIndications: Diabetes type 1, controlled ([facility]) 1 1/2 tabs po every 6-8 hours prn nausea/vomiting 10 tablet 2 06/24/19 12 Active acetone, urine, test (KETOSTIX) stripIndications:D iabetes type 1, controlled ([facility]) Individually foil wrapped ketostix Disp: 2 boxes Sig: As directed for ketone testing 50 strip 2 06/24/19 12 Active methylphenidate (RITALIN) 10 MG tablet Take 10 mg by mouth 2 times daily. Active methylphenidate (CONCERTA) 18 MG CR tablet Take by mouth every morning. Active methylphenidate (CONCERTA) 36 MG CR tablet Take 36 mg by mouth every morning. Active JEAN CONTOUR TEST stripIndications:T ype 1 diabetes mellitus ([facility]) TEST 5-7 TIMES PER DAY 200 strip 11 05/01/19 13 Active LEVEMIR FLEXPEN 100 UNIT/ML injectionIndicatio ns:Type I (juvenile type) diabetes mellitus without mention of complication, not stated as uncontrolled INJECT 10 UNITS subcutaneously NIGHTLY UP TO 20 UNITS 5 Pen 11 07/04/19 13 Active JEAN MICROLET LANCETS MISCIndications:Ty pe I (juvenile type) diabetes mellitus without mention of complication, not stated as uncontrolled Testing 4-6 times daily 200 each 11 07/04/19 13 Active Glucose Blood (BLOOD GLUCOSE TEST STRIPS) STRPIndications:Di abetes type 1, controlled ([facility]) For blood glucose testing 5-7 x/day 200 strip 11 10/10/19 13 Active TRUEPLUS LANCETS 30G MISCIndications:Di abetes type 1, controlled ([facility]) For blood glucose testing 5-7x/day 200 each 11 10/10/19 13 Active Blood Glucose Monitoring Suppl (TRUERESULT BLOOD GLUCOSE) W/DEVICE KITIndications:Effie betelsa type 1, controlled ([facility]) by Does not apply route. 2 kit 1 10/10/19 13 Active levothyroxine (SYNTHROID) 112 MCG tabletIndications: Down syndrome,Hypothyro idism Take 1 tablet by mouth daily. 30 tablet 11 11/01/19 13 Active GLUCAGON EMERGENCY 1 MG injectionIndicatio ns:Type I (juvenile type) diabetes mellitus without mention of complication, not stated as uncontrolled use as directed FOR EXTREME HYOPGLYCEMIA 1 kit 2 12/11/19 13 Active HUMALOG 100 UNIT/ML injectionIndicatio ns:Type I (juvenile type) diabetes mellitus without mention of complication, not stated as uncontrolled UP TO 4 INJECTIONS A DAY,UP TO 40 UNITS A DAY 2 vial 0 05/02/19 14 Active RA Alcohol Swabs 70 % PADS Using 6-8 times daily 200 each 0 06/14/19 14 Active Insulin Pen Needle (B-D ULTRAFINE III SHORT PEN) 31G X 8 MM MISC Using 6-8 times daily 200 each 0 06/14/19 14 Active Active Problems Problem Noted Date Diagnosed Date Down syndrome 06/24/2011 Diabetes type 1, controlled 07/16/2010 Hypothyroidism 07/16/2010 Aggressive behavior 07/16/2010 Family History Medical History Relation Name Comments Diabetes Brother Thyroid Disease Brother Relation Name Status Comments Brother Social History Tobacco Use Types Packs/Day Years [...] Sign Reading Time Taken Comments Blood Pressure 108/67 07/05/2012 11:21 AM EDT Pulse 115 07/05/2012 11:21 AM EDT Temperature - - Respiratory Rate - - Oxygen Saturation - - Inhaled Oxygen Concentration - - Weight 49.7 kg (109 lb 9.1 oz) 07/05/2012 11:21 AM EDT Height 146.8 cm (4' 9.8 ) 07/05/2012 11:21 AM ED T Body Mass Index 23.06 07/05/2012 11:21 AM EDT Plan of Treatment Not on file Care Teams Mask Design Engineer Relationship Specialty Start Date End Date Leonid Escalante MD PCP - General 03/31/11
--- OUTSIDE RECORDS SUMMARY | 2024-08-15 13:06 | XMS_ITS | Encounter Summary ---
Author Organization [facility] Address [address] [place] [address] Care Team Providers Care Block Engraver Name Role Phone Unallocated, Noms Provider Primary Care Provi marion Encounter Details Date Type Department Care Team (Late st Contact Info) Description 08/06/[address] [facility] [address] [place] [id number] Unallocated, Noms MD [address] [place] [address] Social History Tobacco Use Types Packs/Day Years [...] 08/16/2024 3:20 PM EDT Office Visit [facility] [address] [place] [id number] Fortino Hess DO [address] [place], [place] [id number] documented as of this encounter Visit Diagnoses Not on filedocumented in this encounter Care Teams Block Engraver Relationship Specialty Start Date End Date Unallocated, Noms ProviderMD [address] [place] [address] PCP - General Family Medicine 05/08/23 documented as of this encounter
--- OUTSIDE RECORDS SUMMARY | 2024-08-15 13:06 | XMS_ITS | Encounter Summary ---
Author Organization [facility] Address [address] [place] [address] Care Team Providers Care Cigar Tobacco Processing Supervisor Name Role Phone Leonid Escalante MD Primary Care Provider [phone] Reason for Visit * Reason Comments Other Encounter Details Date Type Department Care Team (Late st Contact Info) Description 07/21/2013 Refill Division of Pediatric Endocrinology [address] [facility] [address] [place] [address] Christianne Breen, MINI BACCARAT DEALER - HEAD SULFIDE OPERATOR [address] [facility] [address] [place] [address] Other Social History Tobacco Use Types Packs/Day [...] on filedocumented in this encounter Care Teams Cigar Tobacco Processing Supervisor Relationship Specialty Start Date End Date Leonid Escalante MD PCP - General 03/31/11 documented as of this encounter
[2024-08-15 13:12] VITALS: PULSE 113; TEMP 36.3; BMI 23.5
[2024-08-15] MEDS: CEFAZOLIN SODIUM 2 GM/50 ML D5W PREMIX IV (14:30)
[2024-08-15] MEDS: LACTATED RINGER'S SOLUTION 1,000 ML 50 ML IV (14:30)
[2024-08-15] MEDS: LIDOCAINE 2% JELLY 10 ML UR (14:43)
[2024-08-15 14:49] LABS: Alanine Aminotransferase 23 U/L (16-63); Albumin Globulin Ratio 0.9; Albumin Level 3.2 g/dL (3.4-5.0); Alkaline Phosphatase 89 U/L (46-116); Anion Gap 9.4; Aspartate Amino Transferase 21 U/L (15-37); BUN Creatinine Ratio 14.9; Bilirubin Total 0.6 mg/dL (0.2-1.0); Calcium 9.3 mg/dL (8.5-10.1); Carbon Dioxide 29.9 mmol/L (21.0-32.0); Chloride 104 mmol/L (98-107); Estimated GFR (African America >60 (>=60 mL/min/1.73m^2); Estimated GFR (Non-African Ame >60 (>=60 mL/min/1.73m^2); Globulin 3.6 g/dL; Glucose 151 mg/dL (74-106); Potassium 4.3 mmol/L (3.5-5.1); Sodium 139 mmol/L (136-145); Total Protein 6.8 g/dL (6.4-8.2)
[2024-08-15 15:02] VITALS: BP 86/53; PULSE 63; O2SAT 93
--- NOTE | 2024-08-15 15:06 | PM.URSON ---
Urology Surgery Operative Note Operative Note Procedure Date: 08/15/24 Time Out Performed: yes Pre-op Diagnosis: 1. Bladder wall thickening 2. Difficulty voiding Post-op Diagnosis: other (1. Bladder wall thickening 2. Urethral stricture, 3. Meatal stenosis) Procedures performed: Cystoscopy, urethral dilation Anesthesia: MAC (Dr. Spencer) Primary Surgeon: Juanita Cruz Complications: none Estimated blood loss (mL): 0 Findings: Mild meatal stenosis 14Fr, thin soft annual stricture membranous urethra able to accommodate flexible cystoscope, both dilated with 24Fr x 4 cm balloon dilator. No obstructing prostate. Capacious bladder with 1+ trabeculations. No bladder tumors, lesions or foreign bodies Specimens: none Indications for Procedures: 29 year old male with Down's syndrome presented to clinic with his father due to difficulty and infrequent voiding, bladder wall thickening on CT scan. After thorough discussion of risks/benefits of management options, father elected to proceed with cystoscopy with possible urethral dilation under MAC, patinet combative and unable to tolerate awake. Declines postop catheter, patient will self-remove traumatically. Patient with twin who has history of urethral strictures. Risks were discussed including but not limited to bleeding, pain, infection, damage to surrounding structures, strictures and need for additional procedures. Detailed description of Procedure: After informed consent was obtained, the patient was brought to the operating room and transferred onto the operating table in supine position. The patient received the appropriate dose of preoperative IV antibiotics and MAC anesthesia was induced. They were positioned in supine frogleg position with the appropriate pressure points padded, prepped, and draped in the usual sterile fashion for this procedure. An operative safety timeout was performed confirming the patient's identity and procedure, and all present agreed to proceed. I began by inserting lidocaine gel per urethra. After a period of waiting, a flexible cystoscope was inserted with findings as above, mild resistance at meatus. A full cystoscopy including retroflexion was performed with findings as above. A hybrid wire was inserted into the bladder through the cystoscope, scope was removed. A 24Fr x 4 cm balloon dilator was inserted over the wire to the level of the stricture. Under direct visualization, the balloon was inflated and held until pressure remained. The balloon was taken down and the same was repeated at the meatus. The dilator and scope were removed. An 18Fr straight catheter was inserted to drain the bladder. Genital exam was performed noting atrophic bilateral testes, no masses. BL vas deferens palpable. The patient tolerated the procedure well without complication. The patient was awakened from anesthesia and sent to the PACU in stable condition. Plan: Abx sent for post op given dilation. Follow up in 1 month with PVR. Findings and plan of care discussed with patient's father. Urinary Catheter Management Urinary Catheter Management Straight: Cath placed during this visit: no
[2024-08-15 15:16] VITALS: BP 85/57; PULSE 61; O2SAT 96
[2024-08-15 15:50] VITALS: BP 100/57; PULSE 61; O2SAT 96
== END 2024-08-15 15:50 | disposition home or self-care (01) ==
PROVIDERS: PCP Family Medicine; Visit Provider Urology
PROC: (CPT 910; principal; 2024-08-15 14:10)
DX: N35.911 Unspecified urethral stricture, male, meatal (principal); N32.89 Other specified disorders of bladder; R39.198 Other difficulties with micturition; Q90.9 Down syndrome, unspecified; E11.9 Type 2 diabetes mellitus without complications; Z79.4 Long term (current) use of insulin; K21.9 Gastro-esophageal reflux disease without esophagitis; E03.9 Hypothyroidism, unspecified
CPT/HCPCS: 52281; 36415; 80053; 93005; J0690; J2250; J2405; J2704